=== PATIENT | male | born 1985 | race Caucasian/White ===

== ENCOUNTER 2020-12-10 11:32 | Emergency (ER) | payer SELFPAY ==
[~2020-12-10] VITALS: Ht 170.2 cm; Wt 79.4 kg
[2020-12-10 11:40] VITALS: BP 135/68
--- NOTE | 2020-12-10 12:05 | NUR ---
35 Y/O MALE C/O RASH OVER BODY X2-3 WEEKS. PT STATES HE WENT HIKING A FEW WEEKS AGO AND THEN DEVELOPED A RASH TO RIGHT LOWER LEG THAT HAS NOW SPREAD ALL OVER BODY AND FACE, PRIVATE AREA, + PRURITIS ALL OVER. PT HAS BEEN SCRATCHING. PT USED RUBBING ALCOHOL AND CAYENNE PEPPER WITH MINIMAL RELIEF. PT DENIES FEVER/CHILLS/N/V/D. PT DENIES PAIN AT THIS TIME BUT IS ITCHY AND HIS FACE BURCIAGA. ON ASSESSMENT, RASH ON R LOWER LEG, FACE, NECK, AND L LOWER LEG. RASH ALL OVER FACE WITH FACIAL SWELLING/REDNESS AND SCABS ON L SIDE OF FACE. PT IS A/O X4 WITH EVEN AND UNLABORED RESPIRATIONS. PT LAYING IN BED WITH BED IN LOWEST POSITION, BRAKES LOCKED, X1 SIDERAIL UP. HX DENIES ALLERGIES: BLACK MOLD/HAY FEVER
--- NOTE | 2020-12-10 12:07 | NUR ---
DR KING AT BEDSIDE FOR EVALUATION
[2020-12-10] MEDS ORDERED: PRED20TA5 PO (12:30)
[2020-12-10 13:07] VITALS: BP 135/68
--- NOTE | 2020-12-10 13:08 | NUR ---
Patient discharged with v/s stable. Written and verbal after care instructions given and explained. Patient verbalized understanding. Ambulatory with steady gait. All questions addressed prior to discharge. Advised to follow up with PMD.
== END 2020-12-10 13:08 | disposition home or self-care (01) ==
LOC: MED 11:32
DX: L25.9 Unspecified contact dermatitis, unspecified cause (principal)
CPT/HCPCS: 99282